=== PATIENT | female | born 1985 | race American Indian/Alaskan Native ===

== ENCOUNTER 2016-03-17 13:53 | Emergency (ER) | payer MEDICAID ==
--- NOTE | 2016-03-17 18:15 | Emergency Department Report ---
Chief Complaint: Headache Stated Complaint: FLU SX/13 WKS PREG Time Seen by Provider: 03/17/16 17:27 - HPI History of Present Illness: 13-week patient presents with generalized body ache, headache, low back and tummy ache, feeling-feverish, tiredness, cough, "chest hurts when she breaths out," and nausea. Denies vaginal bleed or discharge. LMP 12/2015. - Exam Vital Signs: Vital Signs 03/17/16 14:09 Temperature 99.0 F Pulse Rate 110 H Respiratory 22 Rate Blood Pressure 105/69 O2 Sat by Pulse 100 Oximetry Physical Exam: General: Ill-appearing. NAD. Heart: RRR. Lungs: Equal sound b/l. Abdomen: + BS. MSE screening note: Focused history and physical exam performed. Due to findings the following was ordered: ED Medical Decision Making - Medical Decision Making Patient to be seen by MD in main ED. ED Disposition for MSE Condition: Stable
[2016-03-17 18:35] LABS: Basophils % (Auto) 0.4 % (0.0-1.8); Eosinophils % (Auto) 0.1 % (0.0-4.3); Hemoglobin 9.8 gm/dl (10.1-14.3); Mean Corpuscular HGB Conc 33 % (30-34); Mean Corpuscular Volume 79 fl (79-97); Platelet Count 188 K/mm3 (140-440); Red Blood Count 3.81 M/mm3 (3.65-5.03); Red Cell Distribution Width 15.4 % (13.2-15.2); White Blood Count 7.7 K/mm3 (4.5-11.0)
[2016-03-17] MEDS ORDERED: TYLENOL PR ONE (18:45)
[2016-03-17 18:48] LABS: Mean Corpuscular Hemoglobin 26 pg (28-32)
[2016-03-17 18:53] LABS: Blood Urea Nitrogen 6 mg/dL (7-17); Calcium 8.2 mg/dL (8.4-10.2); Carbon Dioxide 19 mmol/L (22-30); Chloride 99.4 mmol/L (98-107); Glucose 90 mg/dL (65-100); Potassium 3.4 mmol/L (3.6-5.0); Sodium 134 mmol/L (137-145)
[2016-03-17 19:20] LABS: Anion Gap 19 mmol/L
[2016-03-17 19:24] LABS: Bilirubin,Urine NEG (Negative); Blood,Urine NEG (Negative); Ketones,Urine 80 mg/dL (Negative); Leukocyte Esterase,Urine NEG (Negative); Mucus,Urine FEW /HPF; Nitrite,Urine NEG (Negative); Protein,Urine <15 mg/dL mg/dL (Negative); Urobilinogen,Urine < 2.0 mg/dL (<2.0)
[2016-03-17] MEDS ORDERED: NACL 0.9% 1000 ML 1,000 ML IV ONE ×2 (20:00→22:52)
[2016-03-17] MEDS ORDERED: ZOFRAN IV ONE (20:01)
--- NOTE | 2016-03-17 20:22 | Emergency Department Report ---
ED General Adult HPI - General Chief complaint: Headache Stated complaint: FLU SX/13 WKS PREG Time Seen by Provider: 03/17/16 17:27 Source: patient Mode of arrival: Ambulatory Limitations: No Limitations - History of Present Illness Initial comments: Marina is a 30-year-old at 13 weeks confirmed by outside ultrasound presenting today because of fever of 101, body aches, headache and sinus/nasal congestion. States all these symptoms started today. No known sick contacts. Nothing seems to make it better or worse. She denies any abdominal pain or vaginal bleeding. Has not had any numbness, weakness, difficulty walking or talking. No recent known sick contacts. Not had any recent travel. No associated chest pain or difficulty breathing but complains of mild headache. Severity scale (0 -10): 0 - Related Data Previous Rx's Medication Instructions Recorded Last Taken Type Acetaminophen [Acetaminophen TAB] 500 mg PO Q4HR #20 tablet 03/17/16 Unknown Rx Allergies Allergy/AdvReac Type Severity Reaction Status Date / Time No Known Allergies Allergy Unverified 03/17/16 18:40 ED Review of Systems ROS: Stated complaint: FLU SX/13 WKS PREG Other details as noted in HPI Comment: All other systems reviewed and negative Constitutional: fever, malaise Respiratory: denies: cough Cardiovascular: denies: chest pain, dyspnea on exertion, orthopnea Gastrointestinal: denies: abdominal pain, nausea, vomiting Genitourinary: denies: urgency, dysuria, frequency Musculoskeletal: myalgia Skin: denies: rash Neurological: headache. denies: weakness, numbness, paresthesias, confusion, abnormal gait ED Past Medical Hx - Past Medical History Previous Medical History?: No - Surgical History Past Surgical History?: Yes - Social History Smoking Status: Never Smoker Substance Use Type: None - Medications Home Medications: Home Medications Medication Instructions Recorded Confirmed Last Taken Type Acetaminophen [Acetaminophen TAB] 500 mg PO Q4HR #20 tablet 03/17/16 Unknown Rx ED Physical Exam - General Limitations: No Limitations General appearance: alert, in no apparent distress - Head Head exam: Present: atraumatic - Eye Eye exam: Present: normal appearance Pupils: Present: normal accommodation - ENT ENT exam: Present: normal exam - Neck Neck exam: Present: normal inspection. Absent: meningismus - Respiratory Respiratory exam: Present: normal lung sounds bilaterally. Absent: respiratory distress - Cardiovascular Cardiovascular Exam: Present: regular rate, normal heart sounds - GI/Abdominal GI/Abdominal exam: Present: soft. Absent: distended, tenderness, guarding - Extremities Exam Extremities exam: Present: normal inspection, normal capillary refill - Neurological Exam Neurological exam: Present: alert, oriented X3, CN II-XII intact. Absent: motor sensory deficit - Psychiatric Psychiatric exam: Present: normal affect - Skin Skin exam: Present: intact ED Course Vital Signs 03/17/16 03/17/16 03/17/16 14:09 18:39 20:16 Temperature 99.0 F 101.8 F H 99.9 F H Pulse Rate 110 H 125 H 118 H Respiratory 22 22 18 Rate Blood Pressure 105/69 Blood Pressure 94/59 102/63 [Left] O2 Sat by Pulse 100 98 98 Oximetry 03/18/16 00:33 Temperature 99.2 F Pulse Rate 115 H Respiratory 16 Rate Blood Pressure Blood Pressure 95/61 [Left] O2 Sat by Pulse 98 Oximetry - Reevaluation(s) Reevaluation #1: 03/19/16 16:07 I called the patient at this time at her home phone number, states that she is feeling better and complains of primarily sinus congestion. Denies any sob or cp. Is planning to see her doctor on Monday. I explained to the patient my concern for her high heart rate when she was here. Since she is feeling better it is okay for her to follow up on Monday. I explained also that if she has any new symptoms or concerns to call the ER and ask for me or come back to the ER. Patient verbalized understanding. ED Medical Decision Making - Lab Data Result diagrams: 03/17/16 18:25 03/17/16 18:25 - Medical Decision Making Patient appears to have a viral illness. Labs unremarkable other than , influenza test negative, UA does not show any bacteria IV fluids and Tylenol given. Ultrasound shows a normal IUP per radiology As the patient appears to be persistently tachycardic to a rate about 110 patient has been observed for several hours. She appears clinically well. There is low concern pulmonary embolism or myocarditis due to the pain fact that the patient is saturating between 9800%, does not have any leg pain or swelling, does not complain of any chest pain or shortness of breath. Will send home patient with Tylenol for fever and body aches. She will follow- up with her primary care doctor and [facility]. Return to the emergency room if her symptoms worsen or she develops any new symptoms. Critical care attestation.: If time is entered above; I have spent that time in minutes in the direct care of this critically ill patient, excluding procedure time. ED Disposition Clinical Impression: Viral infection affecting Disposition: DISCHARGED TO HOME OR SELFCARE Is pt being admited?: No Does the pt Need Aspirin: No Condition: Stable Additional Instructions: Please follow up with your primary care doctor and [facility] in the next 3-5 days. Return to the Emergency room if you have any new or worsening symptoms. Prescriptions: Acetaminophen [Acetaminophen TAB] 500 mg PO Q4HR #20 tablet Referrals: PRIMARY CARE, [Primary Care Provider] - 3-5 Days Forms: Accompanied Note, Work/School Release Form(ED)
--- NOTE | 2016-03-17 22:32 | Ultrasound Report ---
FINAL REPORT PROCEDURE: Obstetrical ultrasound. TECHNIQUE: Real-time transabdominal sonography of the uterus, placenta, amniotic fluid, adnexa, and fetus was performed with image documentation. Measurements were obtained to determine age/size. M-mode Doppler was used to document heartbeat. CPT 71407 HISTORY: Thirteen week , belly ache. COMPARISON: No prior studies are available for comparison. FINDINGS: The uterus measures 14.3 centimeters x 6.5 centimeters x 10.9 centimeters. There is a single intrauterine fetus in cephalic presentation. Cardiac activity is documented at 160 beats per minute. The crown-rump length measurement is 6.8 centimeters. This indicates a menstrual age of 13 weeks 0 days. The estimated date of confinement is 09/22/2016. The ovaries are not adequately visualized. IMPRESSION: Single live intrauterine with a menstrual age of 13 weeks 0 days.
--- NOTE | 2016-03-17 22:35 | Ultrasound Report ---
FINAL REPORT PROCEDURE: Transvaginal obstetrical ultrasound. TECHNIQUE: Real-time transvaginal sonography of the uterus, placenta, amniotic fluid, adnexa, and fetus was performed with image documentation. Measurements were obtained to determine age/size. M-mode Doppler was used to document heartbeat. CPT 73910 HISTORY: Thirteen week , belly ache. COMPARISON: No prior studies are available for comparison. FINDINGS: There is an intrauterine fetus in cephalic presentation. The crown-rump length measurement is 6.99 centimeters. This indicates a menstrual age of 13 weeks 1 day. The estimated date of confinement is 09/21/2016. Cardiac activity is documented at 154 beats per minute. There is a small hypoechoic area adjacent to the gestational sac. This may represent a small subchorionic hemorrhage. Neither ovary is adequately visualized. IMPRESSION: Single viable intrauterine with a menstrual age of 13 weeks 1 day. Question small subchorionic hemorrhage.
[2016-03-17] MEDS ORDERED: TYLENOL PO ONE (22:52)
[2016-03-18 00:34] VITALS: BP 95/61
== END 2016-03-18 01:08 | disposition home or self-care (01) ==
LOC: ED 13:53
DX: O98.811 Other maternal infectious and parasitic diseases complicating pregnancy, first trimester (principal); B34.9 Viral infection, unspecified; Z3A.13 13 weeks gestation of pregnancy
CPT/HCPCS: 36415; 76801; 76817; 80048; 81001; 84702; 85025; 87400; 96361; 96374; 99284; J2405; J7030